=== PATIENT | female | born 1975 | race Caucasian/White ===

== ENCOUNTER → 2020-08-30 | Outpatient (CLI) | payer OTHER ==
--- NOTE | 2020-08-31 08:19 | CT ---
EXAMINATION TYPE: CT orbits wo con, CT iac wo con DATE OF EXAM: 08/30/2020 COMPARISON: Outside brain MRI August 07, 2020 HISTORY: Left lateral orbital swelling and Abnormal MR CT DLP: 553.7 mGycm Automated exposure control for dose reduction was used. CT of the orbits and internal auditory canals performed without contrast. 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 The re is extension towards level of the orbital apex. There is loss of intraorbital fat along the left l ateral aspect of the lateral rectus muscle. No bony destruction is evident. Intact cortex with loss o f normal cortical medullary differentiation. Margins are somewhat poorly defined. No adjacent soft ti ssue mass. No proptosis. Rectus muscles are symmetric and within normal limits. Paranasal sinuses remain clear. Nasal septum slightly deviated to right of midline similar to prior. Subtle left-sided dural curvilin ear thickening is better seen on recent contrast-enhanced MRI. The external auditory canals are patent bilaterally. Mastoid air cells show no evidence of abnormal opacification bilaterally. The middle ear ossicles are symmetric and unremarkable. There is no evid ence of suspicious surrounding soft tissue density to suggest cholesteatoma. The scutum is preserved bilaterally. The cochlea and the semicircular canals are symmetric and unremarkable. Vestibular aqueduct and inte rnal carotid canal appear unremarkable. Temporomandibular joints are maintained bilaterally. IMPRESSION: As above. Findings favor craniofacial fibrous dysplasia. Other etiologies much less likel y. Surgical referral advised due to intraorbital involvement.
== END | disposition home or self-care (01) ==
LOC: RADCTMAIN 12:29
PROVIDERS: ATTEND Psychiatry & Neurology Neurology
DX: R90.89 Other abnormal findings on diagnostic imaging of central nervous system (principal)
CPT/HCPCS: 70480

== ENCOUNTER → 2022-04-02 | Outpatient (CLI) | payer BC ==
--- NOTE | 2022-04-03 08:31 | US ---
EXAMINATION TYPE: US thyroid st tissue head/neck DATE OF EXAM: 04/02/2022 COMPARISON: NONE CLINICAL HISTORY: E05.90 SUBCLINICAL HYPERTHYROIDISM. Abnormal labs GLAND SIZE: Right Lobe: 4.2 x 1.2 x 1.4 cm Overall Parenchyma: homogenous Left Lobe: 3.6 x 1.0 x 1.1 cm Overall Parenchyma: homogeneous Isthmus Thickness: 0.2 cm NODULES RIGHT: # of nodules measured on right: 0 LEFT: # of nodules measured on left: 0 ISTHMUS: # of nodules measured in the isthmus: 0 Bilateral neck scanned, no evidence of lymphadenopathy. Normal appearing thyroid. IMPRESSION: Unremarkable thyroid ultrasound. 2017 ACR TI-RADS LEVEL: *Highest TI-RADS level nodule reported
== END | disposition home or self-care (01) ==
LOC: RADUSWWP 16:08
PROVIDERS: ATTEND Internal Medicine Endocrinology, Diabetes & Metabolism
DX: E05.90 Thyrotoxicosis, unspecified without thyrotoxic crisis or storm (principal)
CPT/HCPCS: 76536

== ENCOUNTER → 2022-05-08 | Outpatient (CLI) | payer BC ==
--- NOTE | 2022-05-09 09:47 | NM ---
EXAMINATION TYPE: NM thyroid image w uptake DATE OF EXAM: 05/09/2022 COMPARISON: Ultrasound thyroid April 02, 2022 HISTORY: Thyrotoxicosis. TECHNIQUE: Thyroid iodine uptake is calculated and images performed after the oral administration of 313 uCi 1-123 Capsule. FINDINGS: There is normal distribution of activity throughout the gland. The 4 hour iodine uptake is calculated at 18% elevated from the normal range (normal range 8-14%). The 24-hour iodine uptake is calculated at 41%, elevated from the normal range (normal range 15-35%). IMPRESSION: Increased uptake consistent with hyperthyroidism. Normal scan images.
== END | disposition home or self-care (01) ==
LOC: RADNMMAIN 09:04
PROVIDERS: ATTEND Internal Medicine Endocrinology, Diabetes & Metabolism
DX: E05.00 Thyrotoxicosis with diffuse goiter without thyrotoxic crisis or storm (principal)
CPT/HCPCS: 78014; A9516

== ENCOUNTER → 2022-05-22 | Outpatient (CLI) | payer BC ==
[2022-05-22 14:17] LABS: HCT 40.2 % (37.2-46.3); HGB 13.1 g/dL (12.0-15.0); MCH 30.8 pg (27.0-32.0); MCHC 32.6 g/dL (32.0-37.0); MCV 94.4 fL (80.0-97.0); Mean Platelet Volume 10.5 fL (9.5-12.2); NRBC Per 100 WBC 0 /100 WBCS (0.0-0.0); Platelet Count 245 X 10*3/uL (140-440); RBC 4.26 X 10*6/uL (4.10-5.20); WBC 5.63 X 10*3/uL (4.50-10.00)
[2022-05-22 14:45] LABS: ALT 20 U/L (8-44); AST 19 U/L (13-35); African American GFR (CKD) 85.6 (60.0-200.0); Albumin 4.3 g/dL (3.8-4.9); Alkaline Phosphatase 84 U/L (41-126); BUN/Creat Ratio 19.91 Ratio (12.00-20.00); Blood Urea Nitrogen 18.7 mg/dL (9.0-27.0); Calcium 9.4 mg/dL (8.7-10.3); Carbon Dioxide 24.5 mmol/L (20.0-27.5); Chloride 108 mmol/L (96-109); Glucose 103 mg/dL (70-110); Non-African American GFR(CKD) 73.9 (60.0-200.0); Potassium 4.4 mmol/L (3.5-5.5); Sodium 142 mmol/L (135-145); Total Bilirubin <0.15 mg/dL (0.30-1.20); Total Protein 6.2 g/dL (6.2-8.2)
== END | disposition home or self-care (01) ==
LOC: LABWHC1 09:27
PROVIDERS: ATTEND Internal Medicine Endocrinology, Diabetes & Metabolism
DX: E05.90 Thyrotoxicosis, unspecified without thyrotoxic crisis or storm (principal); M89.9 Disorder of bone, unspecified
CPT/HCPCS: 36415; 80053; 84075; 84439; 84443; 84480; 85027